=== PATIENT | male | born 1945 | race Caucasian/White ===

== ENCOUNTER 2016-09-16 12:02 | Outpatient (CLI) | payer MEDICARE, OTHER | END 2016-09-16 12:03 | disposition home or self-care (01) | DX: M19.022 Primary osteoarthritis, left elbow (principal) ==

== ENCOUNTER 2018-01-10 20:56 | Outpatient (CLI) | payer MEDICARE, OTHER ==
--- NOTE | 2018-01-11 15:37 | Ultrasound Report ---
Procedure Date: 01/10/2018 Accession Number: [id number] / [id number] Procedure: US - Duplex Lwr Ext Arterial LT CPT Code: FULL RESULT: EXAM: LEFT LOWER EXTREMITY ARTERIAL DOPPLER ULTRASOUND EXAM DATE: 01/10/2018 11:13 PM. CLINICAL HISTORY: Edema, weeping left leg, PVD. COMPARISON: None. TECHNIQUE: Real-time sonographic vascular imaging was performed by the ice cream vault worker, utilizing color-flow, Doppler flow, and spectral analysis. Multiple patient financial representative static images were saved for review. FINDINGS: Left Lower Extremity: GOLF COURSE DESIGNER: PSV 42 cm/sec, waveform triphasic. PSFA: PSV 101 cm/sec, waveform triphasic. MSFA: PSV 102 cm/sec, waveform triphasic. DSFA: PSV 109 cm/sec, waveform triphasic. PFA: PSV 88 cm/sec, waveform biphasic. POP: PSV 95 cm/sec, waveform triphasic. MIR: PSV 95 cm/sec, waveform triphasic. PRIMER CHARGER: PSV 136 cm/sec, waveform biphasic. ADE: PSV 55 cm/sec, waveform monophasic. DPA: PSV 91 cm/sec, waveform biphasic. IMPRESSION: 1. Monophasic waveforms in the peroneal artery in the calf with delayed upstrokes suggest upstream proximal peroneal arterial high-grade stenosis. The peroneal artery is difficult to visualize along its entire length. 2. Otherwise, the remainder of the left lower extremity arteries show normal arterial velocities with normal spectral waveforms, without evidence for additional foci of hemodynamically significant stenoses. RADIA
== END 2018-01-10 20:57 | disposition home or self-care (01) ==
LOC: DI 20:56
PROVIDERS: ATTEND Family Medicine
DX: E11.51 Type 2 diabetes mellitus with diabetic peripheral angiopathy without gangrene (principal); L03.119 Cellulitis of unspecified part of limb; R60.0 Localized edema

== ENCOUNTER 2018-06-11 13:01 | Outpatient (CLI) | payer MEDICARE, OTHER | END 2018-06-11 13:02 | disposition home or self-care (01) | LOC: SC 13:01 | PROVIDERS: ATTEND Internal Medicine Pulmonary Disease | DX: G47.33 Obstructive sleep apnea (adult) (pediatric) (principal) | CPT/HCPCS: 99203; G0463; 99212 ==

== ENCOUNTER 2018-07-29 20:03 | Outpatient (CLI) | payer MEDICARE, OTHER | END 2018-07-29 20:04 | disposition home or self-care (01) | LOC: SC 20:03 | PROVIDERS: ATTEND Internal Medicine Pulmonary Disease | DX: G47.33 Obstructive sleep apnea (adult) (pediatric) (principal) | CPT/HCPCS: 95811 ==

== ENCOUNTER 2018-08-15 09:16 | Outpatient (CLI) | payer MEDICARE, OTHER | END 2018-08-15 09:17 | disposition home or self-care (01) | LOC: SC 09:16 | PROVIDERS: ATTEND Nurse Practitioner Family | DX: G47.33 Obstructive sleep apnea (adult) (pediatric) (principal) | CPT/HCPCS: 99214; G0463; 99212 ==

== ENCOUNTER 2018-10-09 09:54 | Outpatient (CLI) | payer MEDICARE, OTHER | END 2018-10-09 09:55 | disposition home or self-care (01) | LOC: SC 09:54 | PROVIDERS: ATTEND Nurse Practitioner Family | DX: G47.33 Obstructive sleep apnea (adult) (pediatric) (principal) | CPT/HCPCS: 99213; G0463; 99212 ==

== ENCOUNTER 2019-01-16 15:56 | Outpatient (CLI) | payer MEDICARE, OTHER | END 2019-01-16 15:57 | disposition home or self-care (01) | LOC: SC 15:56 | PROVIDERS: ATTEND Nurse Practitioner Family | DX: G47.33 Obstructive sleep apnea (adult) (pediatric) (principal) | CPT/HCPCS: 99214; G0463; 99212 ==

== ENCOUNTER 2019-09-11 14:41 | Outpatient (CLI) | payer MEDICARE, OTHER ==
[2019-09-11 15:35] VITALS: BP 132/64
--- NOTE | 2019-09-11 15:35 | SLEEP CARE CONSULTATION ---
Information from patient questionnaire entered by Narcisa Fletcher. I have reviewed and concur with the information entered by Narcisa Fletcher. This document represents the service I personally performed and the decisions made by me, Beatriz Loredo, RN, MSN, SANITARIAN. History of Present Illness Previous diagnosis: Very Severe, Obstructive Sleep Apnea-Hypopnea Syndrome AHI: 70.3 Reason for follow up: other (8 month fu) Equipment type: CPAP Equipment obtained from: [employer] (having problems getting supplies despite repeated attempts.) Mask style: Nasal Backup mask available: Yes (old mask ) Last cushion change: 6-7 months HPI additional information: Patient came in very frustrated as unable to get supplies. I had written a prescription to update supplies sent from [employer] in November and wrote an order for them to contact patient to set up supply reminder system. No supplies were received. He has not had supplies for over 6 months. CPAP Compliance Data - Data Reviewed with Patient Average duration of nightly device use: 8.25 Compliance rate %: 100 (180 days) Current pressure setting (cmH2O): 10 Humidity settin Heated hose settin Average residual AHI: 2.6 Average large leak: 47 min 5 sec Subjective Patient concerns: reports: mask leak noise, other (need new parts, no body wants to get them). denies: aerophagia, mask discomfort, air blowing in eyes, condensation in mask/hose, nasal congestion, dry mouth, nose, throat, epistaxis Observed to snore while using device: No Current pressure setting perceived as: comfortable On therapy, patient: reports: sleeping better, awakening more refreshed, being more awake and alert during the day, more rested overall. denies: drowsiness while driving Initial [place] Sleepiness Scale score: 10 Current [place] Sleepiness Scale score: 1 Allergies and Home Medications Known drug allergies: No Home medication list reviewed: Yes (no changes ) Review of Systems Review of systems same as previous: Yes Physical Exam Blood Pressure: 132/64 Cuff size: long Heart Rate: 80 O2 Saturation: 97 Height: 5 ft 9.5 in Weight: 323 lb Body Mass Index: 47.0 BMI Classification: Morbidly Obese Impression and Plan 1. Obstructive Sleep Apnea-Hypopnea Syndrome, very severe, with good treatment compliance and good apnea control. On CPAP therapy, the patient has better sleep quality and is more rested overall. For patient supply concerns. Patient was notified that another DME can be used. I will have my wardrobe coordinator inform of DME options. A DWO prescription will then be made. Patient advised to contact this office if further supply problems. He has had increased mask leaks as unable to get equipment updated. I also discussed how his weight affects his apnea and increases overall health risks. If he gains or loses weight, his CPAP pressure requirements may change with rationale explained. Symptoms to report for CPAP pressure adjustment discussed. Patient's apnea severity and rationale for treatment to reduce apnea, improve sleep quality and reduce cardiovascular and cerebrovascular events was reviewed. I also reviewed the benefit of consistent device use of CPAP for hypertension . * Continue CPAP pressure at 10 cmH2O * Transfer to new CPAP * Notify me if snoring with mask or feeling that the pressure is too much or too little * Attempt to lose weight * Call this office if any problems using CPAP * Return for follow up in 1 year , or sooner if concerns arise Time Spent with Patient (minutes): 19 I spent 100% of this visit face to face with the patient with greater than 50% of this was spent time counseling the patient and coordination of care.
== END 2019-09-11 14:42 | disposition home or self-care (01) ==
LOC: SC 14:41
PROVIDERS: ATTEND Nurse Practitioner Family
DX: G47.33 Obstructive sleep apnea (adult) (pediatric) (principal); E66.01 Morbid (severe) obesity due to excess calories; Z68.42 Body mass index [BMI] 45.0-49.9, adult
CPT/HCPCS: 99213; G0463; 99212

== ENCOUNTER 2020-09-07 09:11 | Outpatient (CLI) | payer MEDICARE, OTHER ==
--- NOTE | 2020-09-07 10:00 | SLEEP CARE CONSULTATION ---
Information from patient questionnaire entered by Narcisa Fletcher. I have reviewed and concur with the information entered by Narcisa Fletcher. This document represents the service I personally performed and the decisions made by me, Brendon Law MD, [facility]. History of Present Illness Service Date and Time: 09/07/2020 0911 Previous diagnosis: Very Severe, Obstructive Sleep Apnea-Hypopnea Syndrome AHI: 70.3 (in 2019) Reason for follow up: annual (last seen 08/2019) Equipment type: CPAP Equipment obtained from: [employer] Mask style: Nasal Prior sleep studies: Yes Year and Where: [address] - [facility] Type of Sleep Study: Polysomnography (Split-night) HPI additional information: HPI: Mr. Schrader was diagnosed to have very severe obstructive sleep apnea- hypopnea syndrome and returns today for follow up of CPAP therapy. The patient purchased the device from [employer] but is getting supplies from [employer]. He was fitted with a Respironics DreamWear nasal cushion mask. He continues to use the device nightly and all through the night. The compliance report shows that he uses the device 359 nights out of the past 360 nights, averaging 8.4 hours a night. He complains of no particular problem with the device such as soreness on the face, dry nose, epistaxis, nasal congestion or headache. He thinks that the pressure of 10 cmH2O is comfortable. On the CPAP therapy he notices improvement in his sleep quality, and that he wakes up feeling fresher in the morning and more awake/alert during the day. His notices no snore at all. [place] Sleepiness Scale score is 1. The average residual AHI is 1.0; and aver age time in large leak per day is 12 minutes a night. CPAP Compliance Data - Data Reviewed with Patient Average duration of nightly device use: 8 hr 33 min Compliance rate %: 99.4 (180 days) Current pressure setting (cmH2O): 10 Humidity settin Heated hose settin Average residual AHI: 0.8 Average large leak: 4 min 30 sec Subjective Initial [place] Sleepiness Scale score: 10 (in 2019) Current [place] Sleepiness Scale score: 1 Allergies and Home Medications Drug allergies reviewed: Yes Home medication list reviewed: Yes Review of Systems Review of systems same as previous: Yes Physical Exam Height: 5 ft 9.5 in Weight: 300 lb Body Mass Index: 43.7 BMI Classification: Morbidly Obese Impression and Plan IMPRESSION: 1. Obstructive Sleep Apnea-Hypopnea Syndrome, very severe, with the patient continuing to do well on nasal CPAP therapy. He has excellent compliance and significant clinical benefits. The current pressure appears effective and comfortable. Overall, he is very satisfied with treatment and plans to continue with it long-term. Because the residual AHI is very low, I will lower his pressure a little to increase comfort. PLAN: 1. His device was set to autoCPAP mode with pressure 6 - 10 cm H2O. 2. Try to lose weight Return in one year for follow up or earlier if there is any problem with the treatment. Follow up recommended for: Weight management Visit Type: In Office Time Spent with Patient (minutes): 15 Provider Statement: I spent 100% of the Face to Face Visit with the patient with greater than 50% spent counseling the patient and coordination of care.
== END 2020-09-07 09:12 | disposition home or self-care (01) ==
LOC: SC 09:11
PROVIDERS: ATTEND Internal Medicine Pulmonary Disease
DX: G47.33 Obstructive sleep apnea (adult) (pediatric) (principal); E66.01 Morbid (severe) obesity due to excess calories; Z68.41 Body mass index [BMI] 40.0-44.9, adult
CPT/HCPCS: 99212; G0463

== ENCOUNTER 2020-11-23 09:07 | Outpatient (CLI) | payer MEDICARE, OTHER ==
--- NOTE | 2020-11-23 15:40 | XRAY Report ---
PROCEDURE: Knee 3 View LT INDICATIONS: L MEDIAL KNEE PX TECHNIQUE: 3 views of the left knee(s) were acquired. COMPARISON: None. FINDINGS: Bones: No fractures or dislocations. No suspicious bony lesions. Tricompartmental degenerative omi nges are present. Soft tissues: Mild joint effusion. No suspicious soft tissue calcifications. IMPRESSION: No visualized acute fracture or dislocation. However, occult injury cannot be excluded. Recommend short interval imaging follow-up in 7-10 days as clinically indicated for additional evalua tion. Reviewed by: Ellen Castle MD on 11/23/2020 3:38 PM PDT Approved by: Ellen Castle MD on 11/23/2020 3:38 PM PDT Station ID: [id number]
== END 2020-11-23 09:08 | disposition home or self-care (01) ==
LOC: DI.N 09:07
PROVIDERS: ATTEND Internal Medicine
DX: M25.562 Pain in left knee (principal)

== ENCOUNTER 2020-12-22 08:37 | Outpatient (CLI) | payer MEDICARE, OTHER ==
--- NOTE | 2020-12-22 15:26 | MRI Report ---
PROCEDURE: Hip LT W/O INDICATIONS: PAIN IN LEFT LEG TECHNIQUE: Noncontrast coronal T1 spin echo and STIR through the bony pelvis. Coronal and axial T2 fast spin ec ho with fat saturation, sagittal T1 spin echo, and oblique axial T2 fast spin echo with fat saturatio n through the hip. COMPARISON: None. FINDINGS: Image quality: Diagnostic. Significant susceptibility artifacts in left hip are seen. Bones and joints: Patient is status post internal fixation of left femoral neck with surgical hardwar e in place. No gross acute fracture or dislocation is seen. No definite marrow edema. Left worse than right bilateral hip joint osteoarthritic changes are seen with superior joint space narrowing and dash bchondral sclerosis. No definite avascular necrosis of femoral head is seen. Pelvic ring is intact. M ild degenerative disc disease in the visualized lower lumbar spine is seen. No suspicious intraosseou s lesion. Small amount of left hip joint effusion is seen with possible intra-articular loose body an terior to left femoral head/neck and measures 1.1 x 1.6 cm in size. Tendons: The gluteus medius and minimus tendons appear intact, without associated muscle atrophy. T he iliopsoas tendon appears intact, without adjacent bursal fluid collections. The origin of the ham string tendon is intact at the ischial tuberosity. Labrum and cartilage: Diffuse loss of cartilages in superior left femoral head is seen. There is sugg estion of extensive left hip superior anterior labral tear. Soft tissues: Visualized muscles demonstrate normal bulk and internal signal. The proximal sciatic neurovascular bundle appears normal adjacent to the hamstring tendons. No free pelvic fluid. Bladde r wall thickness is normal. Genitourinary structures and bowel loops appear normal where visualized. IMPRESSION: 1. Prior fixation of left femoral neck with significant susceptibility artifact. Moderate to severe l eft hip joint osteoarthritis and mild to moderate right hip joint osteoarthritis. No definite acute f racture or dislocation. No definite MR evidence of avascular necrosis of femoral head. 2. No gross muscle or tendon signal abnormality. 3. Small amount of joint effusion in left hip with possible intra-articular loose body anterior to le ft femoral head/neck region as above. 4. Suggestion of extensive left hip superior anterior labral tear. Reviewed by: Erik Dan MD on 12/22/2020 3:25 PM PDT Approved by: Erik Dan MD on 12/22/2020 3:25 PM PDT Station ID: [id number]
== END 2020-12-22 08:38 | disposition home or self-care (01) ==
LOC: DI 08:37
PROVIDERS: ATTEND Internal Medicine
DX: M16.0 Bilateral primary osteoarthritis of hip (principal); M25.452 Effusion, left hip

== ENCOUNTER 2021-06-17 06:17 | Emergency (ER) | payer MEDICARE, OTHER ==
--- NOTE | 2021-06-17 06:46 | ED Physician Documentation ---
ED Addendum - Addendum Addendum: Patient initially seen just prior to change of shift with complaint of nausea and weakness over the last month. He dates also with 50 pound weight loss over the last 2 months he has been thirsty a lot and urinating. With the nausea and episodic vomiting and poor appetite, he did see his primary care yesterday and had labs drawn. Result this morning had shown a quite high blood sugar. He is not sure of the number. This was from [facility] so I do not have access to the labs at this time. He was called and told to come to the ER. Fingerstick blood sugar here read high. We will start IV and give him some hydration and check labs to include electrolytes, blood sugar, ketones, venous blood gas and urinalysis. We can check the A1c. Will check thyroid as well. The patient is awake alert and conversant. He has normal breathing. He denies abdominal pain. Consideration for ketosis or acidosis but he does not look significantly ill at this time. Lungs are clear and heart is regular. Minimal edema in the legs. He denies history of heart or lung problems. 06/17/21 06:43
[2021-06-17] MEDS: SODIUM CHLORIDE 0.9% 1,000 ML IV STA ×2 (07:02→08:30)
[2021-06-17 07:05] LABS: BASOPHILS % (AUTO) 0.2 %; EOSINOPHILS # (AUTO) 0.1 10^3/uL (0.0-0.7); EOSINOPHILS % (AUTO) 0.6 %; LYMPHOCYTES # (AUTO) 1.3 10^3/uL (1.5-3.5); MEAN CORPUSCULAR HGB CONC 33.3 g/dL (32.0-36.0); MEAN CORPUSCULAR VOLUME 86.9 fL (80.0-94.0); MEAN PLATELET VOLUME 11.2 fL (7.4-11.4); MONOCYTES # (AUTO) 0.8 10^3/uL (0.0-1.0); MONOCYTES % (AUTO) 8.7 %; NEUTROPHILS # (AUTO) 6.6 10^3/uL (1.5-6.6); NEUTROPHILS % (AUTO) 75.2 %; PLT - PLATELET COUNT 237 10^3/uL (130-450); RED BLOOD COUNT 5.18 10^6/uL (4.70-6.10); RED CELL DISTRIBUTION WIDTH 14.1 % (12.0-15.0); WHITE BLOOD COUNT 8.7 x10^3/uL (4.8-10.8)
[2021-06-17] MEDS: ONDANSETRON 4 MG/2 ML VIAL IVP STA (07:21)
[2021-06-17 07:33] LABS: ALBUMIN 3.5 g/dL (3.2-5.5); ALBUMIN/GLOBULIN RATIO 1.1 (1.0-2.2); ALKALINE PHOSPHATASE 137 IU/L (42-121); ALT ALANINE AMINOTRANSFERASE 36 IU/L (10-60); AST ASPARTATE AMINOTRANSFERASE 19 IU/L (10-42); BILIRUBIN,TOTAL 1.5 mg/dL (0.2-1.0); BUN - BLOOD UREA NITROGEN 40 mg/dL (6-20); CALCIUM 8.6 mg/dL (8.5-10.3); CARBON DIOXIDE - CO2 23 mmol/L (21-32); CHLORIDE 87 mmol/L (101-111); CREATININE 1.3 mg/dL (0.6-1.2); GFR - MDRD 54 (>89); LIPASE 125 U/L (22-51); MAGNESIUM 2.1 mg/dL (1.7-2.8); POTASSIUM 4.7 mmol/L (3.5-5.0); SODIUM 132 mmol/L (135-145); TOTAL PROTEIN 6.7 g/dL (6.7-8.2)
[2021-06-17 07:34] LABS: KETONES, SERUM (ACETEST) MODERATE (NEGATIVE)
[2021-06-17 07:37] LABS: GLUCOSE 761 mg/dL (70-100)
[2021-06-17 07:43] LABS: VBG BASE EXCESS -2.1 mmol/L (-2 - +2); VBG OXYGEN SATURATION 90.1 % (60-80); VBG PCO2 36.1 mmHg (41-51); VBG PH 7.403 (7.31-7.41); VBG PO2 54.4 mmHg (25-47); VBG TOTAL CO2 23.1 mmol/L (24-29)
[2021-06-17 07:58] LABS: BILIRUBIN,URINE NEGATIVE (NEGATIVE); GLUCOSE, URINE (UA) >=1000 mg/dL (NEGATIVE); KETONES,URINE (UA) 40 mg/dL (NEGATIVE); LEUKOCYTE ESTERASE, URINE NEGATIVE (NEGATIVE); NITRITE,URINE NEGATIVE (NEGATIVE); OCCULT BLOOD,URINE NEGATIVE (NEGATIVE); PH,URINE 5.5 PH (5.0-7.5); PROTEIN,URINE NEGATIVE (NEGATIVE); UROBILINOGEN,URINE 0.2 (NORMAL) E.U./dL (NORMAL)
[2021-06-17 08:04] LABS: CLARITY,URINE CLEAR (CLEAR)
--- NOTE | 2021-06-17 08:20 | ED Physician Documentation ---
History of Present Illness - Stated complaint Stated Complaint: BLOOD SUGARS - Chief complaint Chief Complaint: General - History obtained from History obtained from: Patient - History of Present Illness Timing: Today Pain level max: 0 Pain level now: 0 - Additonal information Additional information: Patient is a 75-year-old male who is brought in a after his doctor called him and told him to come to the emergency department because his blood sugar was "high". Patient denies any nausea or vomiting. Eating more frequently. He is on Metformin for diabetes at home. Does not know his dose. No abdominal pain. No fevers. No chills. No recent illnesses. No cough. No congestion. Review of Systems Constitutional: denies: Fever, Chills Cardiac: denies: Chest pain / pressure Respiratory: denies: Cough GI: denies: Nausea, Vomiting, Diarrhea Skin: denies: Rash Musculoskeletal: denies: Neck pain, Back pain Neurologic: denies: Headache PD PAST MEDICAL HISTORY - Past Medical History Past Medical History: Yes Cardiovascular: Hypertension Endocrine/Autoimmune: Type 2 diabetes - Present Medications Home Medications: Ambulatory Orders Medication Instructions Recorded Confirmed Insulin Glargine [Lantus Solostar] 20 unit SUBQ QPM #1 pkg 06/17/21 - Allergies Allergies/Adverse Reactions: Allergies Allergy/AdvReac Type Severity Reaction Status Date / Time No Known Drug Allergies Allergy Verified 06/17/21 06:39 - Living Situation Living Arrangement: reports: At home - Social History Does the pt smoke?: No Does the pt have substance abuse?: No - Family History Family history: reports: Non contributory PD ED PE NORMAL - Vitals Vital signs reviewed: Yes - General General: Alert and oriented X 3, No acute distress, Well developed/nourished - HEENT HEENT: PERRL, Ears normal, Moist mucous membranes, Pharynx benign - Neck Neck: Supple, no meningeal sign - Cardiac Cardiac: RRR, Strong equal pulses - Respiratory Respiratory: No respiratory distress, Clear bilaterally - Abdomen Abdomen: Soft, Non tender, Non distended - Derm Derm: Warm and dry - Extremities Extremities: No edema - Neuro Neuro: Alert and oriented X 3 - Psych Psych: Normal mood, Normal affect Results - Vitals Vitals: Vital Signs - 24 hr 06/17/21 06/17/21 06/17/21 06:25 09:22 11:00 Temperature 36.3 C L Heart Rate 93 79 70 Respiratory 18 17 14 Rate Blood Pressure 156/67 H 139/68 H 132/68 H O2 Saturation 95 98 97 Oxygen O2 Source Room air - Labs Labs: Laboratory Tests 06/17/21 06/17/21 06/17/21 06:59 06:59 06:59 WBC 8.7 RBC 5.18 Hgb 15.0 Hct 45.0 MCV 86.9 MCH 29.0 MCHC 33.3 RDW 14.1 Plt Count 237 MPV 11.2 Neut # (Auto) 6.6 Lymph # (Auto) 1.3 L [place] # (Auto) 0.8 Eos # (Auto) 0.1 Baso # (Auto) 0.0 Absolute Nucleated RBC 0.00 Nucleated RBC % 0.0 VBG pH VBG pCO2 VBG pO2 VBG HCO3 VBG Total CO2 VBG O2 Saturation VBG Base Excess Sodium 132 L Potassium 4.7 Chloride 87 L Carbon Dioxide 23 Anion Gap 22.0 H BUN 40 H Creatinine 1.3 H Estimated GFR (MDRD) 54 L Glucose 761 H* POC Whole Bld Glucose Estimat Average Glucose 415 H Hemoglobin A1c % 16.1 H Calcium 8.6 Magnesium 2.1 Total Bilirubin 1.5 H AST 19 ALT 36 Alkaline Phosphatase 137 H Total Protein 6.7 Albumin 3.5 Globulin 3.2 Albumin/Globulin Ratio 1.1 Lipase 125 H TSH Urine Color Urine Clarity Urine pH Ur Specific [place] Urine Protein Urine Glucose (UA) Urine Ketones Urine Occult Blood Urine Nitrite Urine Bilirubin Urine Urobilinogen Ur Leukocyte Esterase Ur Microscopic Review Urine Culture Comments Serum Ketones MODERATE H 06/17/21 06/17/21 06/17/21 06:59 07:32 07:48 WBC RBC Hgb Hct MCV MCH MCHC RDW Plt Count MPV Neut # (Auto) Lymph # (Auto) [place] # (Auto) Eos # (Auto) Baso # (Auto) Absolute Nucleated RBC Nucleated RBC % VBG pH 7.403 VBG pCO2 36.1 L VBG pO2 54.4 H VBG HCO3 22.0 L VBG Total CO2 23.1 L VBG O2 Saturation 90.1 H VBG Base Excess -2.1 L Sodium Potassium Chloride Carbon Dioxide Anion Gap BUN Creatinine Estimated GFR (MDRD) Glucose POC Whole Bld Glucose Estimat Average Glucose Hemoglobin A1c % Calcium Magnesium Total Bilirubin AST ALT Alkaline Phosphatase Total Protein Albumin Globulin Albumin/Globulin Ratio Lipase TSH 0.67 Urine Color YELLOW Urine Clarity CLEAR Urine pH 5.5 Ur Specific [place] 1.010 Urine Protein NEGATIVE Urine Glucose (UA) >=1000 H Urine Ketones 40 H Urine Occult Blood NEGATIVE Urine Nitrite NEGATIVE Urine Bilirubin NEGATIVE Urine Urobilinogen 0.2 (NORMAL) Ur Leukocyte Esterase NEGATIVE Ur Microscopic Review NOT INDICATED Urine Culture Comments NOT INDICATED Serum Ketones 06/17/21 06/17/21 06/17/21 09:39 11:07 11:07 WBC RBC Hgb Hct MCV MCH MCHC RDW Plt Count MPV Neut # (Auto) Lymph # (Auto) [place] # (Auto) Eos # (Auto) Baso # (Auto) Absolute Nucleated RBC Nucleated RBC % VBG pH VBG pCO2 VBG pO2 VBG HCO3 VBG Total CO2 VBG O2 Saturation VBG Base Excess Sodium 131 L Potassium 4.0 Chloride 91 L Carbon Dioxide 24 Anion Gap 16.0 H BUN 34 H Creatinine 1.1 Estimated GFR (MDRD) 65 L Glucose 462 H POC Whole Bld Glucose 544 H* 534 H* Estimat Average Glucose Hemoglobin A1c % Calcium 8.2 L Magnesium Total Bilirubin AST ALT Alkaline Phosphatase Total Protein Albumin Globulin Albumin/Globulin Ratio Lipase TSH Urine Color Urine Clarity Urine pH Ur Specific [place] Urine Protein Urine Glucose (UA) Urine Ketones Urine Occult Blood Urine Nitrite Urine Bilirubin Urine Urobilinogen Ur Leukocyte Esterase Ur Microscopic Review Urine Culture Comments Serum Ketones PD MEDICAL DECISION MAKING - ED course Complexity details: reviewed results, re-evaluated patient, considered differential, d/w patient ED course: Patient with hyperglycemia, mild ketosis. No significant acidosis. Given IV fluids, insulin. Blood sugar decreased down into the 400s. Hemoglobin A1c is consistent with a blood sugar average of 415. Patient adamantly refuses admission to the hospital. Therefore we will start him on Lantus 20 units nightly in addition to his normal medications. He will follow up with his doctor on Monday to discuss his regular insulin and adjust the Lantus. Patient is welcome to return at any time. Patient encouraged to return if he worsens in any way or is not feeling better. This document was made in part using voice recognition software. While efforts are made to proofread this document, sound alike and grammatical errors may occur. Departure - Departure Disposition: 01 Home, Self Care Clinical Impression: Diabetes Qualifiers: Diabetes mellitus type: type 2 Diabetes mellitus longterm insulin use: without longterm use Diabetes mellitus complication status: without complication Qualified Code(s): E11.9 - Type 2 diabetes mellitus without complications Condition: Good Instructions: ED Hyperglycemia Diabetic Follow-Up: Dominick Farley MD [Primary Care Provider] - Within 3 Days Prescriptions: Insulin Glargine [Lantus Solostar] 20 unit SUBQ QPM #1 pkg Comments: We will start you on Lantus at night, 20 units. You need to check your blood sugar every morning. You need to follow-up with Dr. Farley on Monday for insulin adjustment. You need to return if you worsen including abdominal pain, vomiting or other new or worrisome symptoms. Please continue your current medications. Your average blood sugar over the past 3 months is 415. You have chosen not to stay in the hospital today, please return if you worsen or change your mind. Your prescriptions were sent to [facility] in [place]. You need to pick this up today and start this tonight.
[2021-06-17] MEDS: INSULIN REGULAR HUMAN 100 UNIT/1 ML 10 ML MDV IVP STA (08:30)
[2021-06-17] MEDS: INSULIN REGULAR HUMAN 100 UNIT/1 ML 10 ML MDV SUBQ STA (08:35)
[2021-06-17 09:57] LABS: ESTIMATED AVERAGE GLUCOSE 415 mg/dL (70-100); HEMOGLOBIN A1c% 16.1 % (4.27-6.07)
[2021-06-17 11:21] LABS: CALCIUM 8.2 mg/dL (8.5-10.3); CREATININE 1.1 mg/dL (0.6-1.2)
[2021-06-17 11:27] VITALS: BP 132/68
== END 2021-06-17 13:30 | disposition home or self-care (01) ==
LOC: ED 06:17
DX: E11.10 Type 2 diabetes mellitus with ketoacidosis without coma (principal); Z79.84 Long term (current) use of oral hypoglycemic drugs
CPT/HCPCS: 36415; 80048; 80053; 81003; 82009; 82803; 83036; 83690; 83735; 84443; 85025; 96361; 96374; 99283; 99284; J1815; 81001; 87086